=== PATIENT | male | born 1960 | race African-American/Black ===

== ENCOUNTER 2017-10-22 09:58 | Emergency (ER) | payer MEDICARE, MEDICAID ==
[~2017-10-22 09:58] MED LIST: Sodium Chloride 0.9% 100 ML BAG ONE; Triple Antibiotic Oint 1 GM Packet ONE
[2017-10-22] MEDS ORDERED: Lidocaine 2% w/Epinephrine 1:200K 20 ML VIAL ONE (10:23)
[2017-10-22 10:33] LABS: #Basophils 0.1 thou/uL (0.0-0.2); #Eosinphils 0.1 thou/uL (0.0-0.7); #Lymphocytes 1.4 thou/uL (1.20-3.40); #Monocytes 0.8 thou/uL (0.11-0.59); #Neutrophils 6.1 thou/uL (1.40-6.50); %Eosinophils 0.8 % (0.0-10.0); %Lymphocytes 16.5 % (21.0-51.0); %Monocytes 9.3 % (0.0-10.0); %Neutrophils 72.4 % (42.0-75.0); Hemoglobin 14.2 g/dL (14.0-18.0); Mean Corpuscular HGB CONC 31.9 g/dL (32.0-36.0); Mean Corpuscular Hemoglobin 28.4 pg (27.0-31.0); Mean Corpuscular Volume 89.1 fl (80.0-94.0); Mean Platelet Volume 8.8 fL (7.4-10.4); Platelet Count 170 thou/uL (130-400); RBC Distribution Width 12.3 % (11.5-14.5); Red Blood Cell (RBC) Count 4.98 mill/uL (4.70-6.10); White Blood Cell (WBC) Count 8.4 thou/uL (4.8-10.8)
[2017-10-22] MEDS ORDERED: Clindamycin/D5W 600 mg/50 ml Premix Bag ONE (10:46)
[2017-10-22] MEDS ORDERED: cefTRIAXone\\ROCEPHIN 2 GM VIAL ONE ×2 (10:46→10:48)
[2017-10-22] MEDS ORDERED: Adacel (T-DAP) 0.5 ML VIAL ONE (11:05)
[2017-10-22] MEDS ORDERED: HYDROcodone/Acetaminophen 10/325 mg Tablet ONE (11:14)
== END 2017-10-22 11:24 | disposition home or self-care (01) ==
LOC: MADERS 09:58
DX: L02.512 Cutaneous abscess of left hand (principal); I11.0 Hypertensive heart disease with heart failure; I50.9 Heart failure, unspecified; E11.9 Type 2 diabetes mellitus without complications; E78.5 Hyperlipidemia, unspecified; F17.210 Nicotine dependence, cigarettes, uncomplicated; Z79.899 Other long term (current) drug therapy
CPT/HCPCS: 10060; 85025; 87070; 87077; 87186; 87205; 90471; 90715; 96365; 96375; J0696; J3490; J7050

== ENCOUNTER 2017-10-23 11:29 | Emergency (ER) | payer MEDICARE, MEDICAID ==
[2017-10-23] MEDS ORDERED: Lidocaine 1% w/Epinephrine 1:100K 20 ML VIAL ONE (12:25)
== END 2017-10-23 13:35 | disposition home or self-care (01) ==
LOC: MADERS 11:29
DX: L02.512 Cutaneous abscess of left hand (principal); R73.03 Prediabetes; E78.5 Hyperlipidemia, unspecified; I11.0 Hypertensive heart disease with heart failure; I50.9 Heart failure, unspecified; F17.210 Nicotine dependence, cigarettes, uncomplicated; Z79.01 Long term (current) use of anticoagulants; Z79.899 Other long term (current) drug therapy
CPT/HCPCS: 99282; J2001

== ENCOUNTER 2019-07-24 12:53 | Emergency (ER) | payer MEDICARE, MEDICAID | END 2019-07-24 14:00 | disposition left against medical advice (07) | LOC: MADERS 12:53 | DX: Z53.21 Procedure and treatment not carried out due to patient leaving prior to being seen by health care provider (principal) ==

== ENCOUNTER 2019-07-26 16:36 | Emergency (ER) | payer MEDICARE, MEDICAID ==
[2019-07-26 18:22] LABS: #Lymphocytes 2.2 thou/uL (1.20-3.40); #Neutrophils 6.2 thou/uL (1.40-6.50); %Basophils 0.5 % (0.0-1.0); %Eosinophils 0.5 % (0.0-10.0); %Lymphocytes 23.3 % (21.0-51.0); %Monocytes 10.6 % (0.0-10.0); %Neutrophils 65.1 % (42.0-75.0); Hemoglobin 14.7 g/dL (14.0-18.0); Mean Corpuscular HGB CONC 30.3 g/dL (32.0-36.0); Mean Corpuscular Hemoglobin 28.4 pg (27.0-31.0); Mean Corpuscular Volume 93.7 fL (78.0-98.0); Mean Platelet Volume 7.8 fL (7.4-10.4); Platelet Count 218 thou/uL (130-400); RBC Distribution Width 12.6 % (11.5-14.5); Red Blood Cell (RBC) Count 5.19 mill/uL (4.70-6.10); White Blood Cell (WBC) Count 9.5 thou/uL (4.8-10.8)
[2019-07-26 18:43] LABS: Acetaminophen Less than 6.0 mcg/mL (10.0-30.0); Alcohol Less than 10 mg/dL (Less than 10); Magnesium 1.8 mg/dL (1.6-2.6); Salicylate Less than 8.0 mg/dL (15.0-30.0)
[2019-07-26 18:45] LABS: ALT (SGPT) 9 U/L (8-55); AST (SGOT) 14 U/L (5-34); Albumin 4.1 g/dL (3.4-4.8); Alkaline Phosphatase 81 U/L (40-110); Anion Gap 16 mmol/L (10-20); BUN (Urea Nitrogen) 11 mg/dL (8.4-25.7); Bilirubin, Total 0.4 mg/dL (0.2-1.2); Calc. Creatinine Clearance 0 mL/min (70-130); Calcium 9.1 mg/dL (7.8-10.44); Carbon Dioxide 23 mmol/L (23-31); Chloride 103 mmol/L (98-107); Estimated GFR-MDRD Greater than 90; Globulin 3.6 g/dL (2.4-3.5); Glucose 103 mg/dL (80-115); Lipase 50 U/L (8-78); Potassium 3.5 mmol/L (3.5-5.1); Protein, Total 7.7 g/dL (5.8-8.1); Sodium 138 mmol/L (136-145)
[2019-07-26 18:48] LABS: Bilirubin Negative (Negative); Blood, Urine Small (Negative); Clarity Hazy (Clear); Glucose, Urine (Dipstick) Negative (Negative); Leukocyte Small (Negative); Nitrite Positive (Negative); Protein, Urine (Dipstick) 30 mg/dL (Neg-Trace); Urobilinogen > or = 8.0 mg/dL (Less than 2)
[2019-07-26 18:50] LABS: Bacteria/HPF 3+ HPF (None Seen); Squamous Epithelial 0-3 HPF (0-3)
[2019-07-26 18:52] LABS: Amphetamine Not Detected (NotDetected); Barbiturates Screen Not Detected (NotDetected); Benzodiazepine Screen Not Detected (NotDetected); Cocaine Metabolite Screen Not Detected (NotDetected); Medtox Control Line Valid? VALID (VALID); Methadone Not Detected (NotDetected); Methamphetamine Not Detected (NotDetected); Opiate Screen Not Detected (NotDetected); Oxycodone Screen Not Detected (NotDetected); Phencyclidine (PCP) Not Detected (NotDetected); THC/Cannabinoid Screen Detected (NotDetected); Tricyclic Screen Not Detected (NotDetected)
--- NOTE | 2019-07-26 18:58 | RAD ---
EXAM: CHEST ONE VIEW PORTABLE: 07/26/19 HISTORY: Altered mental status. COMPARISON: 06/06/16. FINDINGS: Minimal increased linear and interstitial markings bilaterally with some minimal thickening of the ri ght minor fissure. No confluent pneumonia, overt edema, or significant pleural effusion. Atherosclero tic ectatic changes of the aorta. IMPRESSION: Minimal linear and parenchymal change in the right lower mid lung zone having more of a chronic or no nacute appearance. No confluent pneumonia, overt edema, or pleural effusion. Atherosclerosis of the a fox with ectasia. POS: RRE
--- NOTE | 2019-07-26 19:06 | CT ---
EXAM: BRAIN CT WITHOUT IV CONTRAST: 07/26/19 HISTORY: Altered mental status. There is a fairly large area of poorly defined abnormal low attenuation change involving the left tem poral lobe extending into the posterior parieto-occipital lobe. There appears to be several millimete rs of midline shift to the right concerning for some mass effect. I am very concerned that this repre sents edema in association with a mass rather than encephalomalacia. There may be some associated enc ephalomalacia. There is some atrophy and chronic white matter ischemic change. There is noted to be s ome dilatation of the clinoid portion of the right internal carotid artery when compared to the left possibly some minimal aneurysmal dilatation. No evidence for acute hemorrhage. IMPRESSION: Extensive area of abnormal low attenuation change involving much of the left temporal and parietal an d occipital regions in the distribution of the left middle cerebral artery. There does appear to be s ome minimal mass effect with this. This certainly could represent a subacute infarct although the pos sibility of a coexistent mass and edema is a consideration as well. There is atrophy and chronic whit e matter ischemic change. No evidence for significant acute hemorrhage. Some focal dilatation of the right internal carotid artery cavernous portion evidence for minimal aneurysmal dilatation but withou t significant focal aneurysm. No evidence for acute hemorrhage. Follow-up brain MRI with and without IV contrast and brain MRA examination is recommended for further assessment. Findings discussed with Dr. Nieves in the Emergency Room at 6:49 p.m. on 07/26/19. Code CR POS: RRE
[2019-07-26] MEDS ORDERED: cefTRIAXone\\ROCEPHIN 1 GM VIAL ONE (19:23)
[2019-07-26] MEDS ORDERED: Adenosine 6 MG/2 ML VIAL ONE (19:51)
[2019-07-26] MEDS ORDERED: Metoprolol Tartrate 5 MG/5 ML VIAL ONE (19:56)
[2019-07-26] MEDS ORDERED: Midazolam HCl 2 mg/2 ml Vial ONE (20:22)
== END 2019-07-26 20:45 | disposition short-term general hospital (02) ==
LOC: MADERS 16:36
DX: G93.9 Disorder of brain, unspecified (principal); I47.1 Supraventricular tachycardia; N39.0 Urinary tract infection, site not specified
CPT/HCPCS: 70450; 71045; 80053; 80306; 80307; 81003; 81015; 83605; 83690; 83735; 84443; 84484; 85025; 93005; 94760; 96374; 96375; J0153; J0696; J2250

== ENCOUNTER 2020-06-14 14:23 | Outpatient (CLI) | payer MEDICARE, MEDICAID | END 2020-06-14 14:24 | disposition home or self-care (01) | LOC: MADLAB 14:23 | PROVIDERS: ATTEND Family Medicine | DX: I48.0 Paroxysmal atrial fibrillation (principal); I11.0 Hypertensive heart disease with heart failure; I50.9 Heart failure, unspecified | CPT/HCPCS: 82607; 82746 ==

== ENCOUNTER 2021-09-30 16:23 | Emergency (ER) | payer MEDICARE, MEDICAID ==
[2021-09-30 17:25] LABS: Hemoglobin 13.5 g/dL (14.0-18.0); Mean Corpuscular Hemoglobin 29.7 pg (27.0-31.0); Mean Platelet Volume 11.2 fL (7.4-10.4); Platelet Count 116 thou/uL (130-400); RBC Distribution Width 13.6 % (11.5-14.5); Red Blood Cell (RBC) Count 4.55 mill/uL (4.70-6.10); White Blood Cell (WBC) Count 8.6 thou/uL (4.8-10.8)
[2021-09-30 17:39] LABS: ALT (SGPT) 9 U/L (8-55); AST (SGOT) 17 U/L (5-34); Albumin 3.9 g/dL (3.4-4.8); Alkaline Phosphatase 63 U/L (40-110); Anion Gap 15 mmol/L (10-20); BUN (Urea Nitrogen) 18 mg/dL (8.4-25.7); Bilirubin, Total 0.6 mg/dL (0.2-1.2); Calc. Creatinine Clearance 0 mL/min (70-130); Carbon Dioxide 24 mmol/L (23-31); Chloride 108 mmol/L (98-107); Globulin 2.8 g/dL (2.4-3.5); Glucose 176 mg/dL (80-115); Potassium 4.2 mmol/L (3.5-5.1); Protein, Total 6.7 g/dL (5.8-8.1); Sodium 143 mmol/L (136-145)
[2021-09-30 17:47] LABS: #Basophils 0.1 thou/uL (0.0-0.2); #Lymphocytes 1.6 thou/uL (1.20-3.40); #Monocytes 0.7 thou/uL (0.11-0.59); #Neutrophils 6.3 thou/uL (1.40-6.50); %Eosinophils 0.3 % (0.0-10.0); %Lymphocytes 18.2 % (21.0-51.0); %Monocytes 7.6 % (0.0-10.0); MDiff Complete? YES; Microcytosis SLIGHT = 6-15 cells (100X) (0-5/hpf); Platelet Morphology Comment Appears Decreased
[2021-09-30] MEDS ORDERED: Sodium Chloride 0.9% 1,000 ML ONE (18:00)
[2021-09-30 18:55] LABS: Bilirubin Small (Negative); Blood, Urine Moderate (Negative); Clarity Clear (Clear); Glucose, Urine (Dipstick) Negative (Negative); Ketone, Urine 15 mg/dL (Negative); Leukocyte Negative (Negative); Nitrite Negative (Negative); Protein, Urine (Dipstick) 100 mg/dL (Neg-Trace); Specific Gravity, Urine 1.025 (1.005-1.030); pH, Urine 5.5 (5.0-9.0)
[2021-09-30 19:03] LABS: Bacteria/HPF Rare-Few HPF (None Seen); Mucous/LPF 2+ LPF (<2+)
== END 2021-09-30 19:15 | disposition home or self-care (01) ==
LOC: MADERS 16:23
DX: E86.0 Dehydration (principal); R31.9 Hematuria, unspecified; Z86.73 Personal history of transient ischemic attack (TIA), and cerebral infarction without residual deficits
CPT/HCPCS: 36416; 70450; 80053; 81003; 81015; 84484; 85025; 93005; J7050